=== PATIENT | female | born 1995 | race Two or more races ===

== ENCOUNTER 2016-12-28 22:13 | Inpatient (IN) | payer SELFPAY ==
[~2016-12-28] VITALS: Ht 175.3 cm; Wt 93.1 kg
[~2016-12-28 22:13] MED LIST: ACET-704 PO; IBUP-1060 PO
[2016-12-28] MEDS ORDERED: IV NORMAL SALINE 1000ML BAG 2,000 ML IV ONE (22:15)
--- NOTE | 2016-12-28 22:22 | PHYS DOC ---
Past Medical History Past Medical History: No Pertinent History Past Surgical History: No Surgical History Alcohol Use: Rarely Drug Use: None Adult General Chief Complaint Chief Complaint: ALCOHOL INTOXICATION HPI HPI Patient is a 21 year old female who presents to the emergency department for altered mental status. The patient was brought to the emergency department by EMS after family called them. Patient was found in an obtunded state and was only responsive to painful stimuli. Patient noted to have unstable vitals prior to arrival to the emergency department. Family states that the patient drank approximately 1 pint of whiskey earlier today but are unsure of any other ingestions. The patient is unable to provide any history at this time as she is only responsive to deep sternal rub. Patient has no known past medical history. Review of Systems Review of Systems Unable to obtain from patient due to obtunded state Current Medications Current Medications Current Medications Medications (Trade) Dose Ordered Sig/Filiberto Start Time Stop Time Status Last Admin Dose Admin Famotidine (Pepcid) 20 mg BID 12/29/16 09:00 UNV Famotidine 20 mg 20 mg 1X ONCE 12/28/16 22:30 12/28/16 22:31 DC 12/28/16 22:48 20 MG Ondansetron HCl (Zofran) 4 mg PRN Q8HRS PRN 12/28/16 23:15 12/29/16 23:14 UNV Potassium Chloride/Dextrose/ Sod Cl (KCl 20 Meq In D5W-1/2 NS) 1,000 ml @ 125 mls/hr 1X ONCE 12/28/16 23:15 12/29/16 07:14 UNV Sodium Chloride (Iv Sodium Chloride 0.9% 1000ml Bag) 2,000 ml @ 1,000 mls/hr 1X ONCE 12/28/16 22:15 12/29/16 00:14 12/28/16 22:12 1,000 MLS/HR Allergies Allergies Allergies Coded Allergies Type Severity Reaction Last Updated Verified No Known Drug Allergies 03/26/14 No Physical Exam Physical Exam Constitutional: Obtunded, localizes pain, hypotensive. [] HENT: Normocephalic, atraumatic, bilateral external ears normal, oropharynx moist, no oral exudates, nose normal. [] Eyes: PERRLA, EOMI, conjunctiva normal, no discharge. [] Neck: Normal range of motion, no tenderness, supple, no stridor. [] Cardiovascular:Heart rate regular rhythm, no murmur [] Lungs & Thorax: Bilateral breath sounds clear to auscultation [] Abdomen: Bowel sounds normal, soft, no tenderness, no masses, no pulsatile masses. [] Skin: Warm, dry, no erythema, no rash. [] Back: No tenderness, no CVA tenderness. [] Extremities: No tenderness, no cyanosis, no clubbing, ROM intact, no edema. [] Neurologic: Obtunded, localizes pain, moves extremities purposefully. [] Current Patient Data Vital Signs Vital Signs Date Time Temp Pulse Resp B/P Pulse Ox O2 Delivery O2 Flow Rate FiO2 12/28/16 23:05 74 100 Room Air 12/28/16 23:00 97/50 12/28/16 22:16 97.6 12 97.6 Lab Values Laboratory Tests Test 12/28/16 22:00 12/28/16 22:21 12/28/16 22:35 POC Urine HCG, Qualitative Hcg negative (Negative) Sodium Level 143mmol/L (136-145) Potassium Level 2.7mmol/L (3.5-5.1) *L Chloride Level 109mmol/L (98-107) H Carbon Dioxide Level 22mmol/L (21-32) Anion Gap 12 (6-14) Blood Urea Nitrogen 11mg/dL (7-20) Creatinine 0.6mg/dL (0.6-1.0) Estimated GFR (Cockcroft-Gault) 126.2 BUN/Creatinine Ratio 18 (6-20) Glucose Level 129mg/dL (70-99) H Calcium Level 7.3mg/dL (8.5-10.1) L Magnesium Level 1.9mg/dL (1.8-2.4) Total Bilirubin 0.6mg/dL (0.2-1.0) Aspartate Amino Transferase (AST) 13U/L (15-37) L Alanine Aminotransferase (ALT) 14U/L (14-59) Alkaline Phosphatase 64U/L (46-116) Total Protein 6.2g/dL (6.4-8.2) L Albumin 3.1g/dL (3.4-5.0) L Albumin/Globulin Ratio 1.0 (1.0-1.7) Ethyl Alcohol Level 220mg/dL (0-10) H White Blood Count 10.2x10^3/uL (4.0-11.0) Red Blood Count 4.07x10^6/uL (3.50-5.40) Hemoglobin 11.9g/dL (12.0-15.5) L Hematocrit 36.8% (36.0-47.0) Mean Corpuscular Volume 90fL (79-100) Mean Corpuscular Hemoglobin 29pg (25-35) Mean Corpuscular Hemoglobin Concent 32g/dL (31-37) Red Cell Distribution Width 13.2% (11.5-14.5) Platelet Count 238x10^3/uL (140-400) Neutrophils (%) (Auto) 47% (31-73) Lymphocytes (%) (Auto) 45% (24-48) Monocytes (%) (Auto) 5% (0-9) Eosinophils (%) (Auto) 2% (0-3) Basophils (%) (Auto) 1% (0-3) Neutrophils # (Auto) 4.8x10^3uL (1.8-7.7) Lymphocytes # (Auto) 4.6x10^3/uL (1.0-4.8) Monocytes # (Auto) 0.5x10^3/uL (0.0-1.1) Eosinophils # (Auto) 0.2x10^3/uL (0.0-0.7) Basophils # (Auto) 0.1x10^3/uL (0.0-0.2) Laboratory Tests 12/28/16 22:35 Laboratory Tests 12/28/16 22:21 EKG EKG Rhythm strip interpretation: Heart rate 50, sinus bradycardia, normal intervals , no ectopy [] Radiology/Procedures Radiology/Procedures One view AP chest x-ray interpreted by me: No infiltrates, no effusions, normal cardiac silhouette [] Course & Med Decision Making Course & Med Decision Making Pertinent Labs and Imaging studies reviewed. (See chart for details) The patient was started on IV fluids in the emergency department with improvement in blood pressures to 90 systolic. The patient's alcohol level was found to be significantly elevated which is likely attributing to the patient's current cephalopathy. The patient will be admitted due to profound inability to function independently and to ensure resolution hypotension. I spoke with Dr. Del Toro who accepted care patient in hospital. Dragon Disclaimer Dragon Disclaimer This electronic medical record was generated, in whole or in part, using a voice recognition dictation system. Departure Departure Impression: Primary Impression: Toxic encephalopathy Additional Impressions: Alcohol intoxication Hypokalemia Hypotension Disposition: ADMITTED INPATIENT Admitting Physician: Dave Del Toro Condition: GUARDED Referrals: NO PCP (PCP) Problem Qualifiers Additional Impressions: Alcohol intoxication Complication of substance-induced condition: with unspecified complication Qualified Code: F10.129 - Alcohol abuse with intoxication, unspecified Hypotension Hypotension type: unspecified hypotension type Qualified Code: I95.9 - Hypotension, unspecified VEDA LAST MD Dec 28, 2016 22:22
[2016-12-28] MEDS ORDERED: ONDANSETRON PF 4 MG/2 ML VIAL. IV ONE (22:30)
[2016-12-28] MEDS ORDERED: FAMOTIDINE 20 MG/2 ML VIAL IVP ONE (22:30)
[2016-12-28 22:42] LABS: ALBUMIN 3.1 g/dL (3.4-5.0); CALCIUM 7.3 mg/dL (8.5-10.1); CREATININE 0.6 mg/dL (0.6-1.0); TOTAL PROTEIN 6.2 g/dL (6.4-8.2)
[2016-12-28 22:42] LABS: BASO # 0.1 x10^3/uL (0.0-0.2); BASO % 1 % (0-3); EOS % 2 % (0-3); HEMATOCRIT 36.8 % (36.0-47.0); HEMOGLOBIN 11.9 g/dL (12.0-15.5); LYMPH # 4.6 x10^3/uL (1.0-4.8); LYMPH % 45 % (24-48); MEAN CORPUSCULAR HEMOGLOBIN 29 pg (25-35); MEAN CORPUSCULAR HGB CONC 32 g/dL (31-37); MEAN CORPUSCULAR VOLUME 90 fL (79-100); MONO % 5 % (0-9); NEUT % 47 % (31-73); PLATELET COUNT 238 x10^3/uL (140-400); RED BLOOD COUNT 4.07 x10^6/uL (3.50-5.40); RED CELL DISTRIBUTION WIDTH 13.2 % (11.5-14.5); WHITE BLOOD COUNT 10.2 x10^3/uL (4.0-11.0)
[2016-12-28 22:43] LABS: GFR 126.2; MAGNESIUM 1.9 mg/dL (1.8-2.4); TOTAL BILIRUBIN 0.6 mg/dL (0.2-1.0)
[2016-12-28 22:46] LABS: POTASSIUM 2.7 mmol/L (3.5-5.1)
[2016-12-28] MEDS ORDERED: ONDANSETRON PF 4 MG/2 ML VIAL. IV PRN (23:15)
[2016-12-28 23:31] LABS: BARBITURATES NEG (NEG); BENZODIAZEPINES NEG (NEG); CANNABINOIDS NEG (NEG); COCAINE NEG (NEG); METHADONE NEG (NEG); OPIATES NEG (NEG); PHENCYCLIDINE NEG (NEG)
[2016-12-28 23:33] LABS: ETHANOL, URINE POS (NEG)
[2016-12-28 23:34] LABS: BACTERIA,URINE 0 /HPF (0-FEW); BILIRUBIN,URINE NEGATIVE (NEG); GLUCOSE,URINE NEGATIVE (NEG); NITRITE,URINE NEGATIVE (NEG); PROTEIN,URINE NEGATIVE (NEG-TRACE); RBC,URINE 0 /HPF (0-2); SQUAMOUS EPITHELIAL CELL,UR OCC /LPF; UROBILINOGEN,URINE 0.2 mg/dL (0.2 mg/dL); WBC,URINE 0 /HPF (0-4)
--- NOTE | 2016-12-28 23:39 | ACF ---
Admission Forms Criteria ALCOHOL AND PSYCHOACTIVE SUBSTANCE WITHDRAWAL Clinical Indications for Inpatient Care (Place ' X' for any and all applicable criteria): Ongoing inpatient care may be indicated for substance withdrawal[B][C] with ANY ONE of the following(1)(2)(3)(4)(21): [ ]I. Delirium due to alcohol or sedative[D] withdrawal is present. [ ]II. Marked signs of withdrawal are present as indicated by ANY ONE of the following(15)(22)(23) [ ]a) Heart rate greater than 120 beats per minute is present. [ ]b) Severe vomiting is present (eg, precludes maintenance of oral hydration). [ ]c) Grossly visible tremor is present. [ ]d) Profuse perspiration is present. [ ]e) Temperature greater than 101 degrees F (38.3 degrees C) is present. [ ]f) Other signs of severe withdrawal are present (eg, Altered mental status ) [ ]g) Severe withdrawal identified by standardized assessment score[A] [ ]III. Signs of withdrawal that require continued inpatient treatment as indicated by ANY ONE of the following(15)(22)(23): [ ]a) Inadequate response to pharmacotherapy (eg, benzodiazepines) [ ]b) Outpatient or lower level of care is not feasible or appropriate (eg, unavailable or inappropriate to patient condition or treatment history). [ ]IV. Withdrawal signs with high-risk indicator are present as manifested by ALL of the following[A](15)(22)(23) [ ]a) Signs of withdrawal are present as indicated by ANY ONE of the following: [ ]i. Tachycardia is present. [ ]ii. Nausea or vomiting is present. [ ]iii. Tremor is present. [ ]iv. Increased perspiration is present. [ ]v. Other signs of withdrawal are present. [ ]vi. Withdrawal identified by standardized assessment score [A] [ ]b) Elevated risk due to historical or comorbid factor is present as indicated by ANY ONE of the following: [ ]i. History of delirium due to withdrawal is present. [ ]ii. History of seizures due to withdrawal is present.[E] [ ]iii. Intrinsic seizure disorder (epilepsy) is present. [ ]iv. Patient is . [ ]v. Other significant medical history (eg, severe cardiac disease) is present, which is assessed to be at risk for destabilization due to withdrawal. [ ]V. Serious electrolyte abnormalities (eg, hyponatremia, hypokalemia, hypophosphatemia) requiring correction performable only in inpatient setting(6)(25) [ ]. Severe hypoglycemia requiring glucose infusions performable only in inpatient setting(6) [X]VII. Drug toxicity or instability, such as Altered mental status, respiratory depression, or arrhythmias, that requires inpatient care [ ]VIII. Danger judged unmanageable at lower level of care because of ANY ONE of the following [ ]a) Danger to self [ ]b) Danger to others [ ]c) Grave disability (eg, inability to perform self-care necessary at lower level of care) The original [employer] [facility] Care Guidelines content created by [employer] [facility] has been revised. The portions of the content which have been revised are identified through the use of italic text or in bold. [facility] Care [facility] has neither reviewed nor approved the modified material. All other unmodified content is copyright [employer] [facility] Care Guidelines. Please see references footnoted in the original [facility] CareGuidelines edition 2016 Admission Criteria Met?: Yes HUMBERTO ANDERSON Dec 28, 2016 23:39
[2016-12-28] MEDS ORDERED: POTASSIUM CL 20MEQ D5-0.45NACL 1,000 ML IV ONE (23:45)
[2016-12-29] VITALS (16 sets, daily range): BP systolic 86–115; BP diastolic 40–61
[2016-12-29] MEDS ORDERED: NOREPINEPHRINE VIAL 8 MG in IV NORMAL SALINE 250ML 250 ML IV PRN (02:00)
[2016-12-29 05:52] LABS: BASO % 0 % (0-3); EOS % 0 % (0-3); HEMATOCRIT 37.5 % (36.0-47.0); HEMOGLOBIN 12.2 g/dL (12.0-15.5); LYMPH # 2.1 x10^3/uL (1.0-4.8); LYMPH % 29 % (24-48); MEAN CORPUSCULAR HEMOGLOBIN 29 pg (25-35); MEAN CORPUSCULAR HGB CONC 33 g/dL (31-37); MEAN CORPUSCULAR VOLUME 90 fL (79-100); MONO % 4 % (0-9); NEUT % 66 % (31-73); PLATELET COUNT 236 x10^3/uL (140-400); RED BLOOD COUNT 4.17 x10^6/uL (3.50-5.40); RED CELL DISTRIBUTION WIDTH 13.3 % (11.5-14.5); WHITE BLOOD COUNT 7.2 x10^3/uL (4.0-11.0)
[2016-12-29 06:35] LABS: CALCIUM 7.2 mg/dL (8.5-10.1); CREATININE 0.5 mg/dL (0.6-1.0); GFR 155.7; POTASSIUM 3.8 mmol/L (3.5-5.1)
--- NOTE | 2016-12-29 08:34 | RAD ---
PORTABLE CHEST 1V Clinical Indication: altered mental status, hypoxia Comparison: None. Technique: Portable upright AP view of the chest is obtained. Findings: There is poor inspiratory effort. No focal consolidation, pleural effusion or pneumothorax is seen. Cardiomediastinal silhouette is within normal limits of size. Visualized osseous structures and overlying soft tissues demonstrate no acute finding. IMPRESSION: No focal consolidation or acute radiographic finding.
[2016-12-29] MEDS ORDERED: FAMOTIDINE 20 MG/2 ML VIAL IVP SCH (09:00)
--- NOTE | 2016-12-29 21:41 | SSS ---
ADMIT DATE: 12/29/2016 CHIEF COMPLAINT: Alcohol intoxication. HISTORY OF PRESENT ILLNESS: The patient is a 21-year-old woman without any medical history who presented to the hospital after drinking shots her parents' house and passing out. In the Emergency Room, she was found with hypotension, required Levophed and was admitted to the ICU. With fluid resuscitation, she actually improved quickly, awoke in the morning and save for slight dizziness. Denied any other physical problems. PAST MEDICAL HISTORY: None. FAMILY HISTORY: Positive for alcoholism in father. SOCIAL HISTORY: Lives with her boyfriend and 2-year-old daughter. No toxic habits, although drinks occasionally (and apparently excessively). ALLERGIES: No known drug allergies. MEDICATIONS: None. REVIEW OF SYSTEMS: Dizziness. Rest of organ system review is negative. PHYSICAL EXAMINATION: VITAL SIGNS: From today show a blood pressure of 111/50, heart rate of 62, respiratory rate at 18. She is afebrile. GENERAL: This is an overweight 21-year-old woman, alert and oriented, in no acute distress. HEENT: Shows no scleral icterus. NECK: Supple. LUNGS: Clear to auscultation bilaterally. HEART: Regular rate and rhythm. ABDOMEN: Has positive bowel sounds, soft, nontender. EXTREMITIES: Show no edema. LABORATORY DATA: CBC from this morning is completely normal. Chemistries with a sodium of 146, potassium 3.8, recovered from 2.7 at admission. BUN and creatinine of 7 and 0.5. ASSESSMENT AND PLAN: The patient is a 21-year-old woman who was admitted with alcohol intoxication/poisoning. She is much improved with IV hydration. Able to take p.o. Ready for discharge to home. DISCHARGE DATE: 12/29/2016 DISCHARGE DIAGNOSIS: Alcohol intoxication/poisoning. DISCHARGE DISPOSITION: To home. DISCHARGE CONDITION: Improved. DISCHARGE MEDICATIONS: None. DISCHARGE INSTRUCTIONS: The patient will follow up with the PCP in 1-2 weeks. ALBERTO SNELL MD DR: BEBE/nts JOB#: [id number] / [id number]
== END 2016-12-29 11:00 | disposition home or self-care (01) | DRG 917 ==
LOC: ER 22:13 → 1 WEST ICU 22:53
PROVIDERS: ADMIT Internal Medicine; ATTEND Internal Medicine
DX: T51.0X1A Toxic effect of ethanol, accidental (unintentional), initial encounter (principal); G92 Toxic encephalopathy; F10.129 Alcohol abuse with intoxication, unspecified; E87.6 Hypokalemia; I95.9 Hypotension, unspecified; Y92.89 Other specified places as the place of occurrence of the external cause; Z63.72 Alcoholism and drug addiction in family
CPT/HCPCS: 36415; 51702; 71010; 80048; 80053; 81001; 81025; 83735; 85027; 87641; 96361; 96374; 96375; G0480; G0481; J2405; J7030; J7050; S0028; 99285-25